=== PATIENT | female | born 1985 | race Caucasian/White ===

== ENCOUNTER → 2016-12-29 | Outpatient (CLI) | payer OTHER ==
[2016-12-29 15:07] LABS: CHLORIDE,CL 107 mmol/L (98-110); SODIUM,NA 140 mmol/L (136-146)
--- NOTE | 2016-12-29 17:00 | CR ---
EXAMINATION: Abdomen HISTORY: Epigastric pain COMPARISON: 07/23/2015 TECHNIQUE: AP view FINDINGS: There is a small amount of stool and gas throughout the colon and rectum. No evidence of a small bowel obstruction. No abnormal calcifications project over the kidneys. The visualized osseou s structures appear normal. Essure devices project over the pelvis. IMPRESSION: 1. Small amount of stool and gas projecting over the colon which could represent constipation. 2. Otherwise grossly unremarkable KUB.
== END ==
LOC: MW.CHFP 14:15
PROVIDERS: ATTEND Physician Assistant
DX: R10.13 Epigastric pain (principal)
CPT/HCPCS: 36415; 74000; 74000-26; 80053; 85025; 87338

== ENCOUNTER 2017-10-18 07:11 | Day surgery (SDC) | payer OTHER ==
[2017-10-17 09:00] LABS: CHLORIDE,CL 107 mmol/L (98-110); SODIUM,NA 138 mmol/L (136-146)
[~2017-10-18 07:11] MED LIST: Lactated Ringers 1,000 ML IV SCH; Sodium Chloride 0.9% 10 ML Syringe FLUSH PRN; Sodium Chloride 0.9% 2.5 ML Syringe FLUSH PRN; ceFAZolin 2 GM in Premix Bag 1 BAG IV ONE
[2017-10-18] MEDS ORDERED: Lidocaine 2% 5 ML SDV ONE (07:20)
[2017-10-18] MEDS ORDERED: fentaNYL 100 MCG/2 ML SDV ONE ×2 (07:21→12:10)
[2017-10-18] MEDS ORDERED: Midazolam 1 MG/ML 2 ML SDV ONE (07:21)
[2017-10-18] MEDS ORDERED: Propofol 200 MG/20 ML SDV ONE ×3 (07:21→11:36)
[2017-10-18] MEDS ORDERED: HYDROmorphone 2 MG/ML Syringe ONE (07:26)
[2017-10-18] MEDS ORDERED: Ondansetron 4 MG/2 ML SDV ONE (07:27)
[2017-10-18] MEDS ORDERED: Rocuronium 10 MG/ML 10 ML Syringe ONE (07:27)
[2017-10-18] MEDS ORDERED: Neostigmine Methylsulfate 1 MG/ML 5 ML Syringe ONE (07:27)
[2017-10-18] MEDS ORDERED: Ketorolac 30 MG/ML SDV ONE (07:27)
--- NOTE | 2017-10-18 07:42 | PCM.PREANE ---
Preanesthetic Assessment - Anesthesia/Transfusion/Family Hx Anesthesia History: Prior Anesthesia Without Reaction Family History of Anesthesia Reaction: No Transfusion History: No Prior Transfusion(s) Intubation History: Unknown - Review of Systems General: No Symptoms Pulmonary: No Symptoms Cardiovascular: No Symptoms Gastrointestinal: No Symptoms Neurological: No Symptoms Other: Reports: None - Physical Assessment Height: 1.65 m Weight: 102.512 kg ASA Class: 2 Mental Status: Alert & Oriented x3 Airway Class: Mallampati = 2 Dentition: Reports: Normal Dentition (retainer at the bottom), [place](s) (x1 upper left) Thyro-Mental Finger Breadths: 3 Mouth Opening Finger Breadths: 3 ROM/Head Extension: Full Lungs: Clear to Auscultation, Normal Respiratory Effort Cardiovascular: Regular Rate, Regular Rhythm - Lab Values: Laboratory Last Values WBC 4.79 K/uL (4.0-11.0) 10/17/17 08:28 RBC 4.95 M/uL (4.30-5.90) 10/17/17 08:28 Hgb 10.9 g/dL (12.0-16.0) L 10/17/17 08:28 Hct 36.8 % (36.0-46.0) 10/17/17 08:28 MCV 74.3 fL (80.0-98.0) L 10/17/17 08:28 MCH 22.0 pg (27.0-32.0) L 10/17/17 08:28 MCHC 29.6 g/dL (31.0-37.0) L 10/17/17 08:28 RDW Std Deviation 45.3 fl (28.0-62.0) 10/17/17 08:28 RDW Coeff of Christen 17 % (11.0-15.0) H 10/17/17 08:28 Plt Count 262 K/uL (150-400) 10/17/17 08:28 MPV 9.80 fL (7.40-12.00) 10/17/17 08:28 Nucleated RBC % 0.0 /100WBC 10/17/17 08:28 Nucleated RBCs # 0 K/uL 10/17/17 08:28 Sodium 138 mmol/L (136-146) 10/17/17 08:28 Potassium 4.4 mmol/L (3.5-5.1) 10/17/17 08:28 Chloride 107 mmol/L (98-110) 10/17/17 08:28 Carbon Dioxide 23 mmol/L (21-31) 10/17/17 08:28 BUN 9 mg/dL (6.0-23.0) 10/17/17 08:28 Creatinine 1.0 mg/dL (0.6-1.5) 10/17/17 08:28 Est Cr Clr Drug Dosing 71.33 mL/min 10/17/17 08:28 Estimated GFR (MDRD) > 60.0 ml/min 10/17/17 08:28 Glucose 92 mg/dL (60-110) 10/17/17 08:28 Calcium 9.2 mg/dL (8.8-10.8) 10/17/17 08:28 Blood Type B NEGATIVE 10/17/17 08:28 Antibody Screen NEGATIVE 10/17/17 08:28 - Allergies Allergies/Adverse Reactions: Allergies Allergy/AdvReac Type Severity Reaction Status Date / Time No Known Allergies Allergy Verified 08/12/15 04:05 - Blood Blood Available: No - Anesthesia Plan Pre-Op Medication Ordered: None - Acknowledgements Anesthesia Type Planned: General Anesthesia Pt an Appropriate Candidate for the Planned Anesthesia: Yes Alternatives and Risks of Anesthesia Discussed w Pt/Guardian: Yes Pt/Guardian Understands and Agrees with Anesthesia Plan: Yes PreAnesthesia Questionnaire HEENT History: Reports: Impaired Vision Other HEENT History: wears glasses Cardiovascular History: Reports: Other (See Below) Other Cardiovascular History: 'Hole in heart'-congenital ASD repair 4 years ago. She is doing well, no further interventions have been needed. 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 She has partial complex seizures which is controlled by Keppra (last seizure almost 2 years ago). Psychiatric History: Reports: Anxiety, Depression, Panic Attack Endocrine/Metabolic History: Reports: Obesity/BMI 30+ Hematologic History: Reports: Anemia, Other (See Below) Other Hematologic History: hx of superficial thrombophlebitis, Rt lower leg '13 Immunologic History: Reports: None Oncologic (Cancer) History: Reports: None Dermatologic History: Reports: None - Past Surgical History Head Surgeries/Procedures: Reports: None HEENT Surgical History: Reports: Adenoidectomy, Naso-Sinus Surgery, Oral Surgery , Tonsillectomy Other HEENT Surgeries/Procedures: hx sinus surgery Cardiovascular Surgical History: Reports: Other (See Below) Other Cardiovascular Surgeries/Procedures: heart surgery-ASD closure-4 years ago , RADHA X2( 4 years ago). Female Surgical History: Reports: Cervical Cryotherapy, Other (See Below) Other Female Surgeries/Procedures: laser ablation of cervix, ESSURE, laparoscopy for endometriosis Musculoskeletal Surgical History: Reports: Arthroscopic Knee Other Musculoskeletal Surgeries/Procedures:: knee scope x2 - History Comment History Comment: etoh "1x a year" - SUBSTANCE USE Smoking Status *Q: Never Smoker Tobacco Use Within Last Twelve Months: No Second Hand Smoke Exposure: No Days Per Week of Alcohol Use: 0 Recreational Drug Use History: No - HOME MEDS Home Medications: Home Meds levETIRAcetam [Keppra] 2 tab PO BEDTIME 08/12/15 [History] ALPRAZolam [Xanax XR] 0.5 tab PO ASDIRECTED PRN 10/11/15 [History] Aspirin 81 mg PO DAILY 03/20/16 [History] FLUoxetine [PROzac] 40 mg PO DAILY 03/20/16 [History] Biotin 1,000 mcg PO DAILY 10/13/17 [History] Omeprazole 20 mg PO DAILY 10/13/17 [History] - CURRENT (IN HOUSE) MEDS Current Meds: Current Medications Lactated Ringer's (Ringers, Lactated) 1,000 mls @ 125 mls/hr IV ASDIRECTED JAROD Sodium Chloride (Saline Flush) 10 ml FLUSH ASDIRECTED PRN PRN Reason: Keep Vein Open Sodium Chloride (Saline Flush) 2.5 ml FLUSH ASDIRECTED PRN PRN Reason: Keep Vein Open Discontinued Medications Fentanyl (Sublimaze) Confirm Administered Dose 300 mcg .ROUTE .STK-MED ONE Stop: 10/18/17 07:22 Glycopyrrolate () Confirm Administered Dose 1 mg .ROUTE .STK-MED ONE Stop: 10/18/17 07:28 Hydromorphone HCl (Dilaudid) Confirm Administered Dose 2 mg .ROUTE .STK-MED ONE Stop: 10/18/17 07:27 Cefazolin Sodium/Dextrose 2 gm (/ Premix) 50 mls @ 100 mls/hr IV ONETIME ONE Stop: 10/18/17 07:29 Ketorolac Tromethamine (Toradol) Confirm Administered Dose 30 mg .ROUTE .STK- MED ONE Stop: 10/18/17 07:28 Lidocaine (Xylocaine-Mpf 2%) Confirm Administered Dose 10 ml .ROUTE .STK-MED ONE Stop: 10/18/17 07:21 Midazolam HCl (Versed 1 Mg/Ml) Confirm Administered Dose 2 mg .ROUTE .STK-MED ONE Stop: 10/18/17 07:22 Neostigmine Methylsulfate (Neostigmine) Confirm Administered Dose 5 mg .ROUTE .STK-MED ONE Stop: 10/18/17 07:28 Ondansetron HCl (Zofran) Confirm Administered Dose 8 mg .ROUTE .STK-MED ONE Stop: 10/18/17 07:28 Propofol (Diprivan 20 Ml) Confirm Administered Dose 400 mg .ROUTE .STK-MED ONE Stop: 10/18/17 07:22 Rocuronium [place] (Zemuron) Confirm Administered Dose 100 mg .ROUTE .STK-MED ONE Stop: 10/18/17 07:28 Sodium Chloride (Saline Flush) 10 ml FLUSH ASDIRECTED PRN PRN Reason: Keep Vein Open Sodium Chloride (Saline Flush) 2.5 ml FLUSH ASDIRECTED PRN PRN Reason: Keep Vein Open
[2017-10-18] MEDS ORDERED: Fluorescein 5 ML Vial ONE (08:28)
[2017-10-18] MEDS ORDERED: Methylene Blue 50 MG/10 ML Ampule ONE ×2 (08:28→08:29)
[2017-10-18] MEDS ORDERED: Furosemide 40 MG/4 ML VIAL ONE (09:56)
[2017-10-18] MEDS ORDERED: Ketorolac 30 MG/ML SDV IVPUSH ONE (12:43)
[2017-10-18] MEDS ORDERED: Acetaminophen/oxyCODONE 325-5 MG Tab PO PRN ×2 (12:43)
[2017-10-18] MEDS ORDERED: Morphine 2 MG/ML Syringe IVPUSH PRN (12:43)
[2017-10-18] MEDS ORDERED: Ondansetron 4 MG/2 ML SDV IVPUSH PRN (12:43)
[2017-10-18] MEDS ORDERED: Promethazine 25 MG/ML SDV IM PRN (12:43)
[2017-10-18] MEDS ORDERED: Morphine 4 MG/ML Syringe IVPUSH PRN (12:43)
[2017-10-18] MEDS ORDERED: fentaNYL 100 MCG/2 ML SDV IVPUSH PRN (12:47)
[2017-10-18] MEDS ORDERED: HYDROmorphone 2 MG/ML Syringe IVPUSH ONE (12:47)
--- NOTE | 2017-10-18 12:58 | PCM.OPNOTE ---
- General Post-Op/Procedure Note Date of Surgery/Procedure: 10/18/17 Operative Procedure(s): Total laparoscopic hysterectomy , Bilateral Salphingectomy Findings: EUA showed 8 week sized anterverted uterus. Laparoscopy showed normal uterus , tubes and ovaries cystoscopy showed bilateral jets Pre Op Diagnosis: Menometrorrhagia Post-Op Diagnosis: Menometrorrhagia Anesthesia Technique: General Mask Primary Surgeon: [place] Dotson Secondary Surgeon: Betty Moseley Anesthesia Provider: Jorge Barnes Fluid Replacement, Intraop: 2,500 Output, Urine Amount: 35 EBL in mLs: 50 Condition: Good
[2017-10-18] MEDS ORDERED: ALPRAZOLAM PO PRN (19:15)
[2017-10-18] MEDS: Ketorolac 30 MG/ML SDV IVPUSH PRN (19:25)
[2017-10-18] MEDS ORDERED: ceFAZolin 2 GM in Premix Bag 1 BAG IV SCH (20:00)
[2017-10-18] MEDS: Acetaminophen 1,000 MG in Premix Bag 1 BAG IV SCH (20:47)
[2017-10-18] MEDS ORDERED: levETIRAcetam 500 MG Tab PO SCH (21:00)
[2017-10-18 23:30] VITALS: BP 124/63
[2017-10-19] MEDS: Ketorolac 30 MG/ML SDV IVPUSH PRN (01:10)
[2017-10-19] MEDS: Acetaminophen 1,000 MG in Premix Bag 1 BAG IV SCH (02:15)
[2017-10-19] MEDS ORDERED: Omeprazole 20 MG Cap.CR PO SCH (09:00)
[2017-10-19] MEDS ORDERED: Enoxaparin 40 MG/0.4 ML Syringe ONE (09:50)
[2017-10-19 14:08] LABS: CHLORIDE,CL 108 mmol/L (98-110); SODIUM,NA 140 mmol/L (136-146)
--- NOTE | 2017-10-20 13:17 | OR ---
DATE OF PROCEDURE: 10/18/2017 SURGEON: OJ GOMES PREOPERATIVE DIAGNOSES: Menometrorrhagia, simple endometrial hyperplasia without atypia, resolved. POSTOPERATIVE DIAGNOSES: Menometrorrhagia, simple endometrial hyperplasia without atypia, resolved. PROCEDURES: Total laparoscopic hysterectomy, Bilateral salphingectomy and Pérez culdoplasty. ANESTHESIA: General endotracheal. ESTIMATED BLOOD LOSS: 50. IV FLUIDS: 2500. URINE OUTPUT: 35. SPECIMENS: Uterus and tubes. COMPLICATIONS: None. FINDINGS: Examination under anesthesia revealed about an 8-week size anteverted uterus with normal tubes and ovaries. BRIEF HISTORY ABOUT THE PATIENT: She is a 32-year-old G1, P1, who was complaining of menometrorrhagia. The patient has menometrorrhagia from 2014, when she had an EMB done, which was initially benign. The patient had a repeat EMB done by nm, which noted simple endometrial hyperplasia without atypia. The patient at that time opted for Provera for treatment. The bleeding initially resolved, but then it picked up again, and she had continued bleeding. At this point, the patient was not interested in any more conservative options and wanted a hysterectomy procedure. the patient was explained the risks, benefits, and alternatives and she signed the consent. DESCRIPTION OF PROCEDURE: The patient was taken to the operating room with IV fluids running and pneumatic compression stockings applied to the lower extremities. General anesthesia was obtained without difficulty. The patient was examined under anesthesia, and the above-noted findings were noted. The patient was placed in dorsal lithotomy position and prepped in the usual sterile fashion. A Guzmán catheter was placed, and the bladder was emptied. The uterus was sounded to a depth of 8 cm, and the Advincula stitch bonding machine operator was placed.The Occluder balloon was inflated on the Advincula. A transverse incisionv measuring 5 mm was placed across the inferior umbilical edge. A 5 mm trocar was advanced under direct visualization with the laparoscope by elevating the incision manually, then CO2 was insufflated through the trocar to 15 mmHg. A skin incision was made in the right lower quadrant to accommodate the 5 mm trocar, which was placed under direct visualization. The left lower quadrant incision was made to accommodate the 5 mm trocar. Intraabdominal survey revealed normal anatomy. The steep Trendelenburg position was obtained to facilitate pelvic exposure. The fallopian tube was excised on both sides with the LigaSure from the beginning to the cornua of the uterus. The ovarian ligament was also transected away from the body of the uterus. The round and broad ligaments were sequentially cut using the LigaSure device. The vesicouterine peritoneum was dissected off the lower uterine segment with the Harmonic. The uterine vessels were identified, and the LigaSure was used to coagulate and cut the uterine vessels. The Harmonic damián were used to dissect the peritoneum off the bladder, with the Advincula pushing the uterus into the pelvis. The cervicovaginal junction was delineated by the colpotomy ring, which was apparent. The vagina was entered with the Harmonic damián and incised circumferentially along the cervicovaginal junction. The uterosacral and cardinal ligament complexes were completely detached from the cervix. The bleeding points were coagulated. The uterus was removed from the vagina. The attention was then placed to the vagina, where the vaginal cuff was attached and held in the apex with the Allis clamp. With exposure of the uterosacral, the Pérez stitch was placed to anchor the posterior vagina to the uterosacral complex. Then, the vaginal cuff was closed with 0 Vicryl in a continuous locking fashion. Then, the cystoscopy was done. Bilateral ureteral jets were noted. Attention was then placed to the laparoscope, and the incision was then inspected. Irrigation was done. Hemostasis was noted. The pneumoperitoneum was reduced to 5 mmHg, and hemostasis was also noted. All the instruments were removed from the abdomen. The laparoscopic incision was sutured. The patient was taken to the recovery room in stable condition. ULI ANTHONY /[id number] RADHA
== END 2017-10-19 10:20 | disposition home or self-care (01) ==
LOC: MW.SDS 07:11 → MW.OB 12:45 → MW.SDS 10-19 10:20
PROVIDERS: ATTEND Obstetrics & Gynecology
DX: N85.01 Benign endometrial hyperplasia (principal); K21.9 Gastro-esophageal reflux disease without esophagitis; G43.909 Migraine, unspecified, not intractable, without status migrainosus; G40.209 Localization-related (focal) (partial) symptomatic epilepsy and epileptic syndromes with complex partial seizures, not intractable, without status epilepticus; F41.9 Anxiety disorder, unspecified; F32.9 Major depressive disorder, single episode, unspecified; F41.0 Panic disorder [episodic paroxysmal anxiety]; E66.9 Obesity, unspecified; Z68.37 Body mass index [BMI] 37.0-37.9, adult; Z87.11 Personal history of peptic ulcer disease; Z87.74 Personal history of (corrected) congenital malformations of heart and circulatory system; Z79.899 Other long term (current) drug therapy; Z79.82 Long term (current) use of aspirin; Z90.89 Acquired absence of other organs; Z98.890 Other specified postprocedural states
CPT/HCPCS: 36415; 58571; 80048; 81025; 85025; 85027; 86850; 86900; 86901; A9270; J1170; J1885; J1940; J2250; J2405; J3010; J7120; 00840; 88307; J2704

== ENCOUNTER 2019-05-10 08:16 | Day surgery (SDC) | payer OTHER, SELFPAY ==
[~2019-05-10 08:16] MED LIST changes: +Acetaminophen/HYDROcodone 325-5 MG Tab PO PRN; +Dexamethasone 4 MG/ML 5 ML MDV ONE; +Lidocaine 1% 20 ML MDV ONE; +Midazolam 1 MG/ML 2 ML SDV ONE; +Ondansetron 4 MG/2 ML SDV ONE; +Propofol 200 MG/20 ML SDV ONE; -Sodium Chloride 0.9% 10 ML Syringe FLUSH PRN; -Sodium Chloride 0.9% 2.5 ML Syringe FLUSH PRN; -ceFAZolin 2 GM in Premix Bag 1 BAG IV ONE; +ceFAZolin 2 GM in Premix Bag 1 BAG IV SCH; +ceFAZolin/Dextrose,Iso-Osmotic 2 GM/50 ML Duplex Bag IV ONE; +fentaNYL 250 MCG/5 ML SDV ONE
--- NOTE | 2019-05-10 08:57 | PCM.PREANE ---
Preanesthetic Assessment - Anesthesia/Transfusion/Family Hx Anesthesia History: Prior Anesthesia Without Reaction Family History of Anesthesia Reaction: No Transfusion History: No Prior Transfusion(s) Intubation History: Unknown Additional History: ASD repair 2012 and no problems since. Active acid reflux. - Review of Systems General: No Symptoms Pulmonary: No Symptoms Cardiovascular: No Symptoms Gastrointestinal: Other (active acid reflux) Neurological: No Symptoms Other: Reports: None - Physical Assessment NPO Status Date: 05/09/19 Height: 1.63 m Weight: 94.801 kg ASA Class: 2 Mental Status: Alert & Oriented x3 Dentition: Reports: Normal Dentition (permanent lower retainer) ROM/Head Extension: Full Lungs: Clear to Auscultation Cardiovascular: Regular Rate - Allergies Allergies/Adverse Reactions: Allergies Allergy/AdvReac Type Severity Reaction Status Date / Time No Known Allergies Allergy Verified 05/08/19 07:17 - Anesthesia Plan Free Text/Narrative:: ETT with RSI - Acknowledgements Anesthesia Type Planned: General Anesthesia Pt an Appropriate Candidate for the Planned Anesthesia: Yes Alternatives and Risks of Anesthesia Discussed w Pt/Guardian: Yes Pt/Guardian Understands and Agrees with Anesthesia Plan: Yes PreAnesthesia Questionnaire HEENT History: Reports: Impaired Vision Other HEENT History: wears glasses Cardiovascular History: Reports: Other (See Below) Other Cardiovascular History: 'Hole in heart'-congenital ASD repair-patch closure Respiratory History: Reports: None Gastrointestinal History: Reports: GERD Genitourinary History: Reports: None 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 She has partial complex seizures which is controlled by Keppra Psychiatric History: Reports: Anxiety, Depression Endocrine/Metabolic History: Reports: Obesity/BMI 30+ Hematologic History: Reports: Anemia, Other (See Below) Other Hematologic History: hx of superficial thrombophlebitis, Rt lower leg 2012 after heart surgery Immunologic History: Reports: None Oncologic (Cancer) History: Reports: None Dermatologic History: Reports: None - Past Surgical History Head Surgeries/Procedures: Reports: None HEENT Surgical History: Reports: Adenoidectomy, Naso-Sinus Surgery, Oral Surgery , Tonsillectomy Other HEENT Surgeries/Procedures: hx sinus surgery Cardiovascular Surgical History: Reports: Other (See Below) Other Cardiovascular Surgeries/Procedures: heart surgery-ASD closure Respiratory Surgical History: Reports: None GI Surgical History: Reports: None Female Surgical History: Reports: Cervical Cryotherapy, Hysterectomy, Other ( See Below) Other Female Surgeries/Procedures: laser ablation of cervix, ESSURE, laparoscopy for endometriosis Endocrine Surgical History: Reports: None Neurological Surgical History: Reports: None Musculoskeletal Surgical History: Reports: Arthroscopic Knee Other Musculoskeletal Surgeries/Procedures:: knee scope x2 Oncologic Surgical History: Reports: None Dermatological Surgical History: Reports: None - History Comment History Comment: etoh "1x a year" - SUBSTANCE USE Smoking Status *Q: Never Smoker Recreational Drug Use History: No - HOME MEDS Home Medications: Home Meds ALPRAZolam [Xanax XR] 0.5 tab PO ASDIRECTED PRN 10/11/15 [History] FLUoxetine [PROzac] 40 mg PO DAILY 03/20/16 [History] Aspirin [Halfprin] 81 mg PO DAILY 05/08/19 [History] Cyanocobalamin (Vitamin B-12) [Vitamin B12] 1 tab PO ASDIRECTED 05/08/19 [ History] Iron Supplement 1 tab PO ASDIRECTED 05/08/19 [History] Omeprazole 20 mg PO DAILY 05/08/19 [History] lamoTRIgine [Lamotrigine] 2 tab PO BID 05/08/19 [History] - CURRENT (IN HOUSE) MEDS Current Meds: Current Medications Hydrocodone Bitart/Acetaminophen ([place] 325-5 Mg) 1 - 2 tab PO Q4H PRN PRN Reason: Pain Cefazolin Sodium/Dextrose 2 gm (/ Premix) 50 mls @ 100 mls/hr IV ONCALL JAROD Lactated Ringer's (Ringers, Lactated) 1,000 mls @ 100 mls/hr IV ASDIRECTED JAROD Discontinued Medications Cefazolin Sodium/Dextrose (Ancef) Confirm Administered Dose 2 gm IV .STK-MED ONE Stop: 05/10/19 08:01 Dexamethasone (Dexamethasone) Confirm Administered Dose 20 mg .ROUTE .STK-MED ONE Stop: 05/10/19 07:20 Fentanyl (Sublimaze) Confirm Administered Dose 250 mcg .ROUTE .STK-MED ONE Stop: 05/10/19 07:19 Lidocaine HCl (Xylocaine-Mpf 1%) Confirm Administered Dose 5 mls @ as directed .ROUTE .STK-MED ONE Stop: 05/10/19 07:20 Lidocaine HCl (Xylocaine 1%) Confirm Administered Dose 20 ml .ROUTE .STK-MED ONE Stop: 05/10/19 07:49 Midazolam HCl (Versed 1 Mg/Ml) Confirm Administered Dose 2 mg .ROUTE .STK-MED ONE Stop: 05/10/19 07:18 Ondansetron HCl (Zofran) Confirm Administered Dose 4 mg .ROUTE .STK-MED ONE Stop: 05/10/19 07:20 Propofol (Diprivan 20 Ml) Confirm Administered Dose 200 mg .ROUTE .STK-MED ONE Stop: 05/10/19 07:18
[2019-05-10] MEDS ORDERED: Rocuronium 100 MG/10 ML Syringe ONE (09:45)
[2019-05-10] MEDS ORDERED: fentaNYL 100 MCG/2 ML SDV IVPUSH PRN (10:41)
--- NOTE | 2019-05-10 11:15 | PCM.OPNOTE ---
- General Post-Op/Procedure Note Date of Surgery/Procedure: 05/10/19 Operative Procedure(s): L knee scope with PLM/PMM Post-Op Diagnosis: L knee med and lateral meniscus tear, ACL tear Anesthesia Technique: General LMA Primary Surgeon: Gaviota Glasgow Basket Turner: Marifer Rice in mLs: 5 Condition: Good Free Text/Narrative:: tt=20 min #[id number]
--- NOTE | 2019-05-10 11:33 | PCM.POSTAN ---
POST ANESTHESIA ASSESSMENT - MENTAL STATUS Mental Status: Alert, Oriented - VITAL SIGNS Pulse Rate: 82 SaO2: 97 (RA) Resp Rate: 12 - RESPIRATORY Respiratory Status: Respiratory Rate WNL, Airway Patent, O2 Saturation Stable - CARDIOVASCULAR CV Status: Pulse Rate WNL, Blood Pressure Stable - GASTROINTESTINAL GI Status: No Symptoms - PAIN Pain Score: 0 - POST OP HYDRATION Hydration Status: Adequate & Stable
--- NOTE | 2019-05-10 12:21 | PCM48HPAN ---
Post Anesthesia Note - EVALUATION WITHIN 48HRS OF ANESTHETIC Vital Signs in Normal Range: Yes Patient Participated in Evaluation: Yes Respiratory Function Stable: Yes Airway Patent: Yes Cardiovascular Function Stable: Yes Hydration Status Stable: Yes Pain Control Satisfactory: Yes Nausea and Vomiting Control Satisfactory: Yes Mental Status Recovered: Yes Pulse Rate: 82 Resp Rate: 12 - COMMENTS/OBSERVATIONS Free Text/Narrative:: no anesthesia problems
[2019-05-10 13:35] VITALS: BP 111/69
--- NOTE | 2019-05-10 14:23 | OR ---
SURGEON: Gaviota Glasgow MD DATE OF PROCEDURE: 05/10/2019 PREOPERATIVE DIAGNOSIS: Left knee pain, status post left knee anterior cruciate ligament reconstruction. POSTOPERATIVE DIAGNOSES: 1. Left knee medial meniscus tear. 2. Left knee lateral meniscus tear. 3. Left knee anterior cruciate ligament tear. 4. Left knee degenerative joint disease. PROCEDURE: Left knee arthroscopy with partial medial and lateral meniscectomy. PRIMARY SURGEON: Gaviota Glasgow MD. IMPROVEMENT ADVISOR: SIERRA Gunn. ANESTHESIA: General. ESTIMATED BLOOD LOSS: 5 mL. TOURNIQUET TIME: 20 minutes. COMPLICATIONS: None. DVT PROPHYLAXIS: Not indicated. IMPLANTS USED: None. BRIEF HISTORY: Joanie is a 33-year-old female, who has previously undergone a left anterior cruciate ligament reconstruction. She did well initially after surgery. However, 2 years later, she developed a tear of her medial meniscus. She subsequently underwent a repeat knee arthroscopy at that time, which showed the graft to be intact. She had done well until recently when she noticed increased pain and swelling in the knee. At that time, I recommended surgical treatment due to her lack of response to conservative treatment. The risks and goals of the procedure were discussed with the patient and were documented preoperatively. She agreed to proceed. DESCRIPTION OF PROCEDURE: The patient was properly identified and brought to the operating room. She was transferred from the OR cart and placed on the operating table in supine position. General anesthesia was administered. After adequate anesthesia was obtained, a well-padded tourniquet was applied to the left lower extremity. The left lower extremity was then prepped in standard fashion using ChloraPrep solution. It was then sterilely draped. A time-out was performed to ensure correct site and procedure. Preoperative antibiotics were given. The surgical site had been marked preoperatively. An Esmarch was used to exsanguinate the left lower extremity and the tourniquet was inflated to 250 mmHg. A lateral portal arthrotomy was established. Blunt trocar and cannula were introduced into the suprapatellar pouch. Camera, inflow, and outflow were assembled. No significant synovitis was noted. The patellofemoral joint was visualized. Minimal degenerative changes were noted. The patella appeared to track centrally. I then extended down the lateral and medial gutter. No loose bodies were identified. I then entered the medial compartment. A medial portal arthrotomy was established. A blunt probe was inserted. She was found to have unstable tear of the posterior horn of her medial meniscus. Using a combination of biters and shaver, this was resected back to a stable remnant, however, the remaining remnant was quite thin. The remainder of the meniscus was intact. The joint surfaces were inspected. She had an area of grade 3 chondromalacia along the posterior lateral aspect of the medial tibial plateau. No loose fragmentation of the cartilage was noted. Diffuse grade 2 to grade 3 degenerative changes were also noted along the weightbearing surface of the medial femoral condyle. I then entered the notch. The stump of the ACL was present along with a thin wisp of remaining graft. The lateral wall showed minimal soft tissue attachment. Osteophyte formation was also noted at the origin of the anterior cruciate ligament. PCL appeared intact. I then entered the lateral compartment. Degenerative fraying with horizontal tearing was noted along the central aspect of the meniscus. Using a combination of biters and shaver, a partial lateral meniscectomy was performed. The remainder of the meniscus appeared intact. Grade 1 to grade 2 chondromalacia was noted within the lateral compartment. Instruments were then removed from the knee. The portal sites were closed with 3-0 nylon. 1% lidocaine was injected along the portal tracts. Xeroform gauze was placed over the wound and a bulky dressing was applied. The tourniquet was then deflated. She was awakened from her anesthetic and transferred back to the operating room cart. She was brought to recovery room in stable condition. All needle and sponge counts were correct. ED / RAJ /[id number]
== END 2019-05-10 13:06 | disposition home or self-care (01) ==
LOC: MW.SDS 08:16
PROVIDERS: ATTEND Orthopaedic Surgery
DX: S83.242A Other tear of medial meniscus, current injury, left knee, initial encounter (principal); S83.282A Other tear of lateral meniscus, current injury, left knee, initial encounter; S83.512A Sprain of anterior cruciate ligament of left knee, initial encounter; M17.12 Unilateral primary osteoarthritis, left knee; D64.9 Anemia, unspecified; J45.990 Exercise induced bronchospasm; F41.9 Anxiety disorder, unspecified; G40.209 Localization-related (focal) (partial) symptomatic epilepsy and epileptic syndromes with complex partial seizures, not intractable, without status epilepticus; K21.9 Gastro-esophageal reflux disease without esophagitis; E66.9 Obesity, unspecified; Z68.35 Body mass index [BMI] 35.0-35.9, adult; Z98.890 Other specified postprocedural states; Z79.82 Long term (current) use of aspirin; Z79.899 Other long term (current) drug therapy
CPT/HCPCS: 01400; 88304; J0330; J0690; J1100; J2001; J2250; J2405; J2704; J3010; J7120

== ENCOUNTER 2019-05-29 07:00 | Day surgery (SDC) | payer OTHER ==
[~2019-05-29 07:00] MED LIST changes: -Acetaminophen/HYDROcodone 325-5 MG Tab PO PRN; -Dexamethasone 4 MG/ML 5 ML MDV ONE; -Lidocaine 1% 20 ML MDV ONE; +Lidocaine 2% 5 ML SDV ONE; -Ondansetron 4 MG/2 ML SDV ONE; -ceFAZolin 2 GM in Premix Bag 1 BAG IV SCH; -ceFAZolin/Dextrose,Iso-Osmotic 2 GM/50 ML Duplex Bag IV ONE; +fentaNYL 100 MCG/2 ML SDV ONE; -fentaNYL 250 MCG/5 ML SDV ONE
--- NOTE | 2019-05-29 07:53 | PCM.PREANE ---
Preanesthetic Assessment - Anesthesia/Transfusion/Family Hx Anesthesia History: Prior Anesthesia Without Reaction Family History of Anesthesia Reaction: No Transfusion History: No Prior Transfusion(s) Intubation History: Unknown - Review of Systems General: No Symptoms Pulmonary: No Symptoms Cardiovascular: No Symptoms Gastrointestinal: Hematochezia, Other (progressive heartburns) Neurological: No Symptoms Other: Reports: None - Physical Assessment O2 Sat by Pulse Oximetry: 97 Respiratory Rate: 16 Vital Signs: Last Vital Signs Temp 36.4 C 05/29/19 07:39 Pulse 85 05/29/19 07:39 Resp 16 05/29/19 07:39 BP 126/76 05/29/19 07:39 Pulse Ox 97 05/29/19 07:39 Height: 5 ft 4 in Weight: 88.904 kg ASA Class: 2 Mental Status: Alert & Oriented x3 Airway Class: Mallampati = 2 Dentition: Reports: Normal Dentition (retainer lower) Thyro-Mental Finger Breadths: 3 Mouth Opening Finger Breadths: 3 ROM/Head Extension: Full Lungs: Clear to Auscultation, Normal Respiratory Effort Cardiovascular: Regular Rate, Regular Rhythm - Allergies Allergies/Adverse Reactions: Allergies Allergy/AdvReac Type Severity Reaction Status Date / Time No Known Allergies Allergy Verified 05/25/19 11:59 - Blood Blood Available: No - Anesthesia Plan Pre-Op Medication Ordered: None - Acknowledgements Anesthesia Type Planned: MAC Pt an Appropriate Candidate for the Planned Anesthesia: Yes Alternatives and Risks of Anesthesia Discussed w Pt/Guardian: Yes Pt/Guardian Understands and Agrees with Anesthesia Plan: Yes PreAnesthesia Questionnaire HEENT History: Reports: Other (See Below) Other HEENT History: wears glasses, has permanent lower dental retainer Cardiovascular History: Reports: Congenital Septal Defect Other Cardiovascular History: 'Hole in heart'-congenital ASD repair-patch closure Respiratory History: Reports: None Gastrointestinal History: Reports: Chronic Constipation, GERD, PUD Genitourinary History: Reports: None 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: Reports: Endometriosis, Musculoskeletal History: Reports: Arthritis, Fracture Other Musculoskeletal History: hx of fx arm Neurological History: Reports: Migraines, Seizure, Other (See Below) Other Neuro History: hx of motion sickness, hx of Complex Partial seizures- last seizure was 2 years ago Psychiatric History: Reports: Anxiety, Depression Endocrine/Metabolic History: Reports: Obesity/BMI 30+ Hematologic History: Reports: Anemia Other Hematologic History: hx of superficial thrombophlebitis, Rt lower leg 2013 after heart surgery Immunologic History: Reports: None Oncologic (Cancer) History: Reports: None Dermatologic History: Reports: None - Past Surgical History Head Surgeries/Procedures: Reports: None HEENT Surgical History: Reports: Adenoidectomy, Naso-Sinus Surgery, Tonsillectomy Other HEENT Surgeries/Procedures: hx sinus surgery Cardiovascular Surgical History: Reports: Other (See Below) Other Cardiovascular Surgeries/Procedures: Atrial Septal Defect repaired 2 years ago- has a patch Respiratory Surgical History: Reports: None GI Surgical History: Reports: None Female Surgical History: Reports: Cervical Cryotherapy, Hysterectomy, Other ( See Below) Other Female Surgeries/Procedures: laser ablation of cervix, ESSURE, laparoscopy for endometriosis Endocrine Surgical History: Reports: None Neurological Surgical History: Reports: None Musculoskeletal Surgical History: Reports: Arthroscopic Knee, Other (See Below) Other Musculoskeletal Surgeries/Procedures:: left knee arthroscopy x3 and left ACL repair (has "buttons) in knee Oncologic Surgical History: Reports: None Dermatological Surgical History: Reports: None - History Comment History Comment: etoh "1x a year" - SUBSTANCE USE Smoking Status *Q: Never Smoker Recreational Drug Use History: No - HOME MEDS Home Medications: Home Meds ALPRAZolam [Xanax XR] 0.5 tab PO ASDIRECTED PRN 10/11/15 [History] FLUoxetine [PROzac] 40 mg PO DAILY 03/20/16 [History] Aspirin [Halfprin] 81 mg PO DAILY 05/08/19 [History] Omeprazole 20 mg PO DAILY 05/08/19 [History] lamoTRIgine [Lamotrigine] 50 mg PO BID 05/08/19 [History] Biotin 10,000 mcg PO DAILY 05/10/19 [History] Ferrous Sulfate [Iron] 325 mg PO DAILY 05/25/19 [History] Hydrocortisone [Hydrocortisone 2.5% Crm] 1 dose TOP BID PRN 05/25/19 [History] - CURRENT (IN HOUSE) MEDS Current Meds: Current Medications Lactated Ringer's (Ringers, Lactated) 1,000 mls @ 125 mls/hr IV ASDIRECTED JAROD Last Admin: 05/29/19 07:44 Dose: 125 mls/hr Discontinued Medications Fentanyl (Sublimaze) Confirm Administered Dose 100 mcg .ROUTE .STK-MED ONE Stop: 05/29/19 06:50 Lidocaine (Xylocaine-Mpf 2%) Confirm Administered Dose 5 ml .ROUTE .STK-MED ONE Stop: 05/29/19 06:50 Midazolam HCl (Versed 1 Mg/Ml) Confirm Administered Dose 2 mg .ROUTE .STK-MED ONE Stop: 05/29/19 06:50 Propofol (Diprivan 20 Ml) Confirm Administered Dose 400 mg .ROUTE .STK-MED ONE Stop: 05/29/19 06:50
--- NOTE | 2019-05-29 09:12 | PCM.OPNOTE ---
- General Post-Op/Procedure Note Date of Surgery/Procedure: 05/29/19 Operative Procedure(s): Esophagogastroduodenoscopy with biopsy. Colonoscopy. Pre Op Diagnosis: Progressive gastroesophageal reflux disease. Intermittent rectal bleeding. Post-Op Diagnosis: Acute gastritis. No evidence of colonic neoplasia. Anesthesia Technique: MAC (ASA II) Primary Surgeon: Jethro King Condition: Good Free Text/Narrative:: DICTATION [id number] CPT CODE [id number]
[2019-05-29] MEDS ORDERED: Lactated Ringers 1,000 ML IV SCH (09:15)
--- NOTE | 2019-05-29 09:56 | PCM48HPAN ---
Post Anesthesia Note - EVALUATION WITHIN 48HRS OF ANESTHETIC Vital Signs in Normal Range: Yes Patient Participated in Evaluation: Yes Respiratory Function Stable: Yes Airway Patent: Yes Cardiovascular Function Stable: Yes Hydration Status Stable: Yes Pain Control Satisfactory: Yes Nausea and Vomiting Control Satisfactory: Yes Mental Status Recovered: Yes Resp Rate: 10 - COMMENTS/OBSERVATIONS Free Text/Narrative:: no anesthesia problems
[2019-05-29 09:57] VITALS: BP 111/54; PULSE 75
--- NOTE | 2019-05-29 14:33 | OR ---
SURGEON: Jethro King M.D. DATE OF PROCEDURE: 05/29/2019 OPERATION PERFORMED: Esophagogastroduodenoscopy with biopsy. PRIMARY SURGEON: Jethro King M.D. ANESTHESIA: MAC. ASA CLASSIFICATION: II. PREOPERATIVE DIAGNOSIS: Progressive gastroesophageal reflux disease. POSTOPERATIVE DIAGNOSIS: Acute gastritis without ulceration. DESCRIPTION OF PROCEDURE: The patient was taken to the endoscopy room and positioned on the endoscopy table in the left lateral decubitus position. Time-out was called for appropriate identification of the patient and procedure. Monitored anesthesia care was provided. The bite block was placed between the patient's teeth. The gastroscope was inserted through the bite block and advanced through the oropharynx into the esophagus, subsequently into the duodenum without difficulty. The duodenum shows no acute inflammatory changes or ulcerations. The gastroscope was withdrawn to the distal stomach, which does show a moderate acute gastritis. No ulcerations were noted. Antral biopsies were obtained to look for the presence of Helicobacter pylori. The gastroscope was retroflexed to visualize the proximal stomach. No hiatal hernia was noted. No ulcers were noted proximally. The gastroscope was then straightened and slowly withdrawn. The GE junction was well defined and shows no acute inflammatory changes or ulcerations. The esophagus demonstrates good contractility. No mid or proximal lesions were identified. The vocal cords were visualized as the scope was withdrawn and noted to move symmetrically. The gastroscope was then removed with the patient having tolerated this portion of the procedure well. Following colonoscopy she was taken to recovery room in stable condition. XAVIER / RAJ /[id number]
--- NOTE | 2019-05-29 14:39 | OR ---
SURGEON: Jethro King M.D. DATE OF PROCEDURE: 05/29/2019 OPERATION PERFORMED: Colonoscopy. PRIMARY SURGEON: Jethro King M.D. ANESTHESIA: MAC. ASA CLASSIFICATION: II. PREOPERATIVE DIAGNOSIS: Rectal bleeding. POSTOPERATIVE DIAGNOSIS: No evidence of neoplasia. DESCRIPTION OF PROCEDURE: The patient was maintained in the left lateral decubitus position following her upper GI endoscopy. The colonoscope was inserted into the rectum and advanced with minimal difficulty to the cecum. The cecum was identified by internal landmarks and external pressure. The colonoscope was retroflexed to visualize the ascending colon from below, then straightened and slowly withdrawn. The cecum, ascending colon, hepatic flexure, transverse colon, splenic flexure, descending colon, sigmoid colon, and rectum were very well visualized. No tumors, polyps, diverticula, or angiodysplastic changes were noted. Once the colonoscope was withdrawn to the rectum, it was retroflexed to visualize the anal orifice from above. No tumors or polyps were seen and there were no acute hemorrhoidal changes. The colonoscope was straightened, the rectum aspirated, and the colonoscope removed. The patient tolerated the procedure well and was taken to recovery room in stable condition. XAVIER / RAJ /[id number]
== END 2019-05-29 09:55 | disposition home or self-care (01) ==
LOC: MW.SDS 07:00
PROVIDERS: ATTEND Surgery
DX: K62.5 Hemorrhage of anus and rectum (principal); K21.9 Gastro-esophageal reflux disease without esophagitis; K29.00 Acute gastritis without bleeding; F32.9 Major depressive disorder, single episode, unspecified; F41.9 Anxiety disorder, unspecified; D50.9 Iron deficiency anemia, unspecified; G40.209 Localization-related (focal) (partial) symptomatic epilepsy and epileptic syndromes with complex partial seizures, not intractable, without status epilepticus; E66.9 Obesity, unspecified; Z68.33 Body mass index [BMI] 33.0-33.9, adult; Z87.11 Personal history of peptic ulcer disease; Z79.82 Long term (current) use of aspirin; Z79.899 Other long term (current) drug therapy
CPT/HCPCS: 43239; 45378; J2001; J2250; J2704; J3010; J7120; 88305; 88312

== ENCOUNTER 2021-12-31 06:36 | Day surgery (SDC) | payer BC, OTHER ==
[~2021-12-31 06:36] MED LIST changes: -Lidocaine 2% 5 ML SDV ONE; -Midazolam 1 MG/ML 2 ML SDV ONE; -Propofol 200 MG/20 ML SDV ONE; -fentaNYL 100 MCG/2 ML SDV ONE
[2021-12-31] MEDS ORDERED: Bupivacaine 0.25%/EPINEPHrine 1:200,000 10 ML SDV ONE (06:37)
[2021-12-31] MEDS ORDERED: Bupivacaine Liposome 1.3% 20 ML SDV ONE (06:37)
[2021-12-31] MEDS ORDERED: Ondansetron 4 MG/2 ML SDV ONE (06:41)
[2021-12-31] MEDS ORDERED: Propofol 200 MG/20 ML SDV ONE ×2 (06:41→09:01)
[2021-12-31] MEDS ORDERED: Midazolam 1 MG/ML 2 ML SDV ONE (06:41)
[2021-12-31] MEDS ORDERED: fentaNYL 100 MCG/2 ML SDV ONE ×2 (06:41→09:03)
[2021-12-31] MEDS ORDERED: Glycopyrrolate 0.2 MG/ML SDV ONE (06:42)
[2021-12-31] MEDS ORDERED: Water For Injection, Sterile 20 ML ONE ×2 (06:42→09:31)
[2021-12-31] MEDS ORDERED: Dexamethasone 4 MG/ML 5 ML MDV ONE (06:42)
[2021-12-31] MEDS ORDERED: Ketorolac 30 MG/ML SDV ONE (06:42)
[2021-12-31] MEDS ORDERED: ceFAZolin 1 GM Vial ONE ×2 (06:42→09:31)
[2021-12-31] MEDS ORDERED: Bupivacaine 0.5% 30 ML SDV ONE (07:08)
[2021-12-31] MEDS ORDERED: Metoclopramide 10 MG/2 ML SDV IVPUSH PRN (07:09)
[2021-12-31] MEDS ORDERED: Ondansetron 4 MG/2 ML SDV IVPUSH PRN (07:09)
[2021-12-31] MEDS ORDERED: Albuterol 0.083% 2.5 MG/3 ML Neb Soln NEB PRN (07:09)
[2021-12-31] MEDS ORDERED: Naloxone 0.4 MG/ML SDV IVPUSH PRN (07:09)
[2021-12-31] MEDS ORDERED: HYDROmorphone 1 MG/ML Syringe IVPUSH PRN (07:09)
[2021-12-31] MEDS ORDERED: ceFAZolin 2 GM in Premix Bag 1 BAG IV SCH (08:00)
[2021-12-31] MEDS ORDERED: Desflurane 240 ML Bottle ONE (10:05)
[2021-12-31] MEDS: fentaNYL 100 MCG/2 ML SDV IVPUSH PRN ×2 (10:14→10:27)
[2021-12-31] MEDS ORDERED: Acetaminophen/oxyCODONE 325-5 MG Tab PO PRN (11:55)
[2021-12-31 13:17] VITALS: BP 108/64; PULSE 80
== END 2021-12-31 12:35 | disposition home or self-care (01) ==
LOC: MW.SDS 06:36
PROVIDERS: ATTEND Orthopaedic Surgery
DX: T84.490A Other mechanical complication of muscle and tendon graft, initial encounter (principal); F32.9 Major depressive disorder, single episode, unspecified; E66.9 Obesity, unspecified; G47.33 Obstructive sleep apnea (adult) (pediatric); F41.9 Anxiety disorder, unspecified; K21.9 Gastro-esophageal reflux disease without esophagitis; J45.901 Unspecified asthma with (acute) exacerbation; Z98.890 Other specified postprocedural states; Z90.89 Acquired absence of other organs; Z77.22 Contact with and (suspected) exposure to environmental tobacco smoke (acute) (chronic); Z79.899 Other long term (current) drug therapy; Y83.2 Surgical operation with anastomosis, bypass or graft as the cause of abnormal reaction of the patient, or of later complication, without mention of misadventure at the time of the procedure; Z68.26 Body mass index [BMI] 26.0-26.9, adult
CPT/HCPCS: 20680; 29888; A9270; J0131; J0690; J1100; J1170; J1885; J2250; J2704; J3010; J3490; J7120; 01400; 64447; 76942; J2405

== ENCOUNTER 2022-12-08 12:51 | Emergency (ER) | payer BC ==
[2022-12-08] MEDS ORDERED: Aspirin 81 MG Tab.Chew PO ONE (13:07)
[2022-12-08 14:19] LABS: CARBON DIOXIDE,CO2 25.2 mmol/L (21.0-32.0); POTASSIUM,K 4.2 mmol/L (3.5-5.1)
[2022-12-08 14:55] VITALS: BP 113/70; PULSE 66
== END 2022-12-08 14:55 | disposition home or self-care (01) ==
LOC: MW.ED 12:51
DX: R07.9 Chest pain, unspecified (principal); K21.9 Gastro-esophageal reflux disease without esophagitis; Z79.899 Other long term (current) drug therapy
CPT/HCPCS: 36415; 71045; 71045-26; 80053; 84443; 84484; 85025; 93005; 93010; 99283; 99285